=== PATIENT | male | born 1990 | race Hispanic/Latino ===

== ENCOUNTER 2024-06-12 09:12 | Emergency (ER) | payer SELFPAY ==
--- NOTE | ~2024-06-12 | US_ITS ---
EXAMINATION: US scrotum doppler DATE: 06/12/2024 11:31 INDICATION: Acute on chronic left testicular pain. TECHNIQUE: Grayscale and Doppler ultrasound images of the testes were obtained. COMPARISON: CT abdomen and pelvis 06/12/2024 FINDINGS: The right testis measures 4.0 x 2.4 x 2.7 cm. The left testis measures 3.5 x 2.1 x 3.2 cm. There is normal vascular flow to both testes. The right epididymis is normal with normal vascular logan w. The left epididymis is normal with normal vascular flow. There is no hydrocele. There is a left-si ded varicocele. IMPRESSION: 1. Left-sided varicocele. Reviewed, dictated and finalized at location A. OELECTRIC SYSTEMS TECHNICIAN IMPRESSION: 1. Left-sided varicocele.
--- NOTE | ~2024-06-12 | CT_ITS ---
EXAMINATION: CT abdomen pelvis w con DATE: 06/12/2024 10:42 INDICATION: Left flank and abdominal pain. Left testicular pain. TECHNIQUE: Computed tomography (CT) of the abdomen and pelvis was performed with 100 mL Omnipaque 350 intravenous contrast. Automated exposure control and iterative reconstruction technique were employe d. The dose-length product was 546.24 mGy-cm. COMPARISON: None. FINDINGS: The visualized portions of the lung bases demonstrate mild atelectasis. No pleural effusion . The heart size is normal. No pericardial effusion. There is bilateral gynecomastia. There is diffus e hepatic steatosis. The gallbladder, spleen, pancreas, adrenal glands, and kidneys are normal. There are no dilated loops of bowel. The appendix is normal. There are no pathologically enlarged lymph no kevin. There is no free intraperitoneal fluid. There is prominent fat in left inguinal canal. There is mild lumbar spondylosis. IMPRESSION: 1. Prominent fat in left inguinal canal, which may be a small hernia. 2. Diffuse hepatic steatosis. Reviewed, dictated and finalized at location A. D REPRESENTATIVE/HEALTH EDUCATION
[2024-06-12 09:16] VITALS: BP 123/93; PULSE 70; RESP 18; TEMP 36.2; O2SAT 99
--- NOTE | 2024-06-12 10:02 | ED_ITS ---
HPI - General Adult General Chief complaint: Urogenital-Male Stated complaint: testicular pain/swelling Time Seen by Provider: 06/12/24 09:40 Source: patient and japanese interpreter Mode of arrival: ambulatory Limitations: language barrier History of Present Illness HPI narrative: Who this is a 34-year-old Australian-speaking male who presents to the ED for chief complaint of left-sided abdominal pain and left testicular pain over the past couple days. Reports that he has had this kind of pain intermittent over the past year but it got worse over the past several days. States that the testicle on the left side seems worse with pain and swelling. Denies any rash. Denies any known history of STD or specific concern for STD. Denies nausea, vomiting, diarrhea, issues with bowel movements. Denies fevers or chills. Related Data Allergies Allergy/AdvReac Type Severity Reaction Status Date / Time No Known Allergies Allergy Verified 06/12/24 10:39 Review of Systems Review of Systems: All systems as dictated in HPI Exam Narrative: GENERAL: Well-appearing, well-nourished, and in no acute distress. HEAD: Normocephalic, atraumatic. EYES: PERRLA and EOMI. ENT: Nares clear, no rhinorrhea or epistaxis. Mucous membranes moist. Oropharynx without tonsillar hypertrophy exudate or other lesions. NECK: Supple. No adenopathy or masses. CHEST: No respiratory distress. Clear to auscultation. No wheezes rales or rhonchi HEART: Regular rate and rhythm. No murmur heard. Normal peripheral pulses. ABDOMEN: Soft, nontender, nondistended, normal active bowel sounds. MSK: Normal range of motion. No edema. SKIN: Warm, dry, no rash. NEURO: Alert and oriented x4. No focal deficits. PSYCH: Normal mood and affect. : Testicular exam shows mild tenderness bilaterally. Minimal to no swelling noted. No rash. Skin intact. No penile discharge. Uncircumcised Course Vital Signs Vital signs: Vital Signs Temperature 97.2 F L 06/12/24 09:16 Pulse Rate 70 06/12/24 09:16 Respiratory Rate 18 06/12/24 09:16 Blood Pressure 123/93 H 06/12/24 09:16 Pulse Oximetry 99 06/12/24 09:16 Oxygen Delivery Room Air 06/12/24 09:16 Temperature 97.2 F L 06/12/24 09:16 Pulse Rate 61 06/12/24 13:20 Respiratory Rate 16 06/12/24 13:20 Blood Pressure 116/83 06/12/24 13:20 Pulse Oximetry 96 06/12/24 13:20 Oxygen Delivery Room Air 06/12/24 09:16 Medical Decision Making MDM Narrative Medical decision making narrative: This is a 34-year-old male who presents to the ED for chief complaint of left abdominal plain and left testicular pain intermittent over the past year but worse this week. Vitals are normal. Exam shows normal exam and only mild to minimal abdominal tenderness on the left side. Lab work is grossly unremarkable including a normal UA. STD labs are negative. CT abdomen pelvis with IV contrast: IMPRESSION: 1. Prominent fat in left inguinal canal, which may be a small hernia. 2. Diffuse hepatic steatosis. Ultrasound scrotal: IMPRESSION: 1. Left-sided varicocele. Overall presentation is consistent with inguinal hernia versus left-sided varicocele. Explained to the patient that he will need to follow-up with surgery and PCP on these findings. Patient will be discharged in stable condition. Supportive measures discussed and return precautions given. Patient is understanding and agreeable with plan for discharge with PCP follow-up. Vital Signs Vital Signs: Vital Signs Temperature 97.2 F L 06/12/24 09:16 Pulse Rate 70 06/12/24 09:16 Respiratory Rate 18 06/12/24 09:16 Blood Pressure 123/93 H 06/12/24 09:16 Pulse Oximetry 99 06/12/24 09:16 Oxygen Delivery Room Air 06/12/24 09:16 Temperature 97.2 F L 06/12/24 09:16 Pulse Rate 61 06/12/24 13:20 Respiratory Rate 16 06/12/24 13:20 Blood Pressure 116/83 06/12/24 13:20 Pulse Oximetry 96 06/12/24 13:20 Oxygen Delivery Room Air 06/12/24 09:16 Lab Data 06/12/24 10:20 06/12/24 10:36 Labs: Lab Results 06/12/24 06/12/24 06/12/24 Range/Units 09:58 09:59 10:20 WBC 7.6 (4.5-10.0) K/mm3 RBC 4.99 (4.6-6.20) M/mm3 Hgb 15.4 (14.0-18.0) g/dL Hct 44.7 (42.0-52.0) % MCV 89.6 (80-100) fl MCH 30.9 (26-34) pg MCHC 34.5 (32-36) g/dl RDW 12.2 (11.5-14.5) % Plt Count 203 (150-375) k/mm3 MPV 10.8 H (7.4-10.4) fl Immature Gran % (Auto) 0.8 H (0-0.5) % Neut % (Auto) 52.2 (45.5-73.1) % Lymph % (Auto) 36.3 (18.3-44.2) % [place] % (Auto) 6.8 (2.6-8.5) % Eos % (Auto) 2.8 (0-4.4) % Baso % (Auto) 1.1 (0.2-1.2) % Lymph # (Auto) 2.76 (0.9-3.2) K/mm3 [place] # (Auto) 0.5 (0.1-0.6) K/mm3 Eos # (Auto) 0.2 (0-0.3) K/mm3 Baso # (Auto) 0.1 (0.0-0.1) K/mm3 Abs Immat Gran (auto) 0.06 H (0.00-0.031) K/mm3 Absolute Neuts (auto) 4.0 (1.3-6.7) K/mm3 Absolute Nucleated RBC 0.000 (0.0-0.012) K/mm3 Nucleated RBC % 0.0 (0.0-0.2) % Sodium 138 (137-145) mmol/L Potassium 4.0 (3.4-5.0) mmol/L Chloride 102 (98-107) mmol/L Carbon Dioxide 26 (22-30) mmol/L Anion Gap 10 (4-12) mmol/L BUN 12 (9-20) mg/dL Creatinine 0.80 (0.7-1.3) mg/dL Estim Creat Clear Calc 112 ml/min Estimated GFR > 60 (59 - ) Glucose 94 (65-110) mg/dL Calcium 9.1 (8.4-10.2) mg/dL Total Bilirubin 0.5 (0.2-1.3) mg/dL AST 44 (17-59) U/L ALT 61 H (6-50) U/L Alkaline Phosphatase 71 (38-126) U/L Total Protein 8.0 (6.3-8.2) g/dL Albumin 4.5 (3.5-5.1) g/dL Urine Color Yellow (Yellow) Urine Appearance Clear (Clear) Urine pH 5.5 (5.0-9.0) Ur Specific [place] 1.019 (1.001-1.035) Urine Protein Negative (Negative) mg/dL Urine Glucose (UA) Negative (Negative) mg/dL Urine Ketones Negative (Negative) mg/dL Ur Blood (Man) Negative (Negative) Urine Nitrate Negative (Negative) Urine Bilirubin Negative (Negative) Urine Urobilinogen 0.2 (<2.0) mg/dL Leukocyte Esterase Rfl Negative (Negative) EVON/UL C. trachomatis (PCR) Not detected (NOT DETECTE) N. gonorrhoeae (PCR) Not detected (NOT DETECTE) T. vaginalis (PCR) Not detected (NOT DETECTE) 06/12/24 Range/Units 10:36 WBC (4.5-10.0) K/mm3 RBC (4.6-6.20) M/mm3 Hgb (14.0-18.0) g/dL Hct (42.0-52.0) % MCV (80-100) fl MCH (26-34) pg MCHC (32-36) g/dl RDW (11.5-14.5) % Plt Count (150-375) k/mm3 MPV (7.4-10.4) fl Immature Gran % (Auto) (0-0.5) % Neut % (Auto) (45.5-73.1) % Lymph % (Auto) (18.3-44.2) % [place] % (Auto) (2.6-8.5) % Eos % (Auto) (0-4.4) % Baso % (Auto) (0.2-1.2) % Lymph # (Auto) (0.9-3.2) K/mm3 [place] # (Auto) (0.1-0.6) K/mm3 Eos # (Auto) (0-0.3) K/mm3 Baso # (Auto) (0.0-0.1) K/mm3 Abs Immat Gran (auto) (0.00-0.031) K/mm3 Absolute Neuts (auto) (1.3-6.7) K/mm3 Absolute Nucleated RBC (0.0-0.012) K/mm3 Nucleated RBC % (0.0-0.2) % Sodium (137-145) mmol/L Potassium (3.4-5.0) mmol/L Chloride (98-107) mmol/L Carbon Dioxide (22-30) mmol/L Anion Gap (4-12) mmol/L BUN (9-20) mg/dL Creatinine 0.90 (0.7-1.3) mg/dL Estim Creat Clear Calc 101 ml/min Estimated GFR > 60 (59 - ) Glucose (65-110) mg/dL Calcium (8.4-10.2) mg/dL Total Bilirubin (0.2-1.3) mg/dL AST (17-59) U/L ALT (6-50) U/L Alkaline Phosphatase (38-126) U/L Total Protein (6.3-8.2) g/dL Albumin (3.5-5.1) g/dL Urine Color (Yellow) Urine Appearance (Clear) Urine pH (5.0-9.0) Ur Specific [place] (1.001-1.035) Urine Protein (Negative) mg/dL Urine Glucose (UA) (Negative) mg/dL Urine Ketones (Negative) mg/dL Ur Blood (Man) (Negative) Urine Nitrate (Negative) Urine Bilirubin (Negative) Urine Urobilinogen (<2.0) mg/dL Leukocyte Esterase Rfl (Negative) EVON/UL C. trachomatis (PCR) (NOT DETECTE) N. gonorrhoeae (PCR) (NOT DETECTE) T. vaginalis (PCR) (NOT DETECTE) Discharge Plan Discharge Clinical Impression: Inguinal hernia, Left varicocele Patient Disposition: Home, Self-Care Condition: Stable Instructions: Antibiotic Form Additional Instructions: Exam and workup today do show evidence of left-sided hernia and left-sided varicocele. Please follow-up with surgeon. Use Tylenol and ibuprofen every 6 hours as needed for pain control. If you have any new or worsening symptoms please return to the ER for further evaluation. Follow-up/Referrals: PHYSICIAN,ROLLER SKATER [Non-Staff] - Anant Smith MD [Physician] - Time of Disposition: 12:21
[2024-06-12 10:11] LABS: Add Urine Microscopic? NO; Appearance Urine Clear (Clear); Bilirubin Urine Negative (Negative); Blood Urine Negative (Negative); Color Urine Yellow (Yellow); Glucose Urine UA Negative (Negative); Ketones Urine Negative (Negative); Leukocyte Esterase Ur Negative LEU/UL (Negative); Nitrate Urine Negative (Negative); Protein Urine Negative (Negative); Specific Grav Ur 1.019 (1.001-1.035); Urobilinogen Urine 0.2 mg/dL (<2.0); pH Urine 5.5 (5.0-9.0)
[2024-06-12 10:29] LABS: Basophils Absolute Auto 0.1 K/mm3 (0.0-0.1); Basophils Percent Auto 1.1 % (0.2-1.2); Eosinophils Absolute Auto 0.2 K/mm3 (0-0.3); Eosinophils Percent Auto 2.8 % (0-4.4); Hematocrit 44.7 % (42.0-52.0); Hemoglobin 15.4 g/dL (14.0-18.0); Immature Granulocyte Absolute 0.06 K/mm3 (0.00-0.031); Immature Granulocyte Percent A 0.8 % (0-0.5); Lymphocytes Absolute Auto 2.76 K/mm3 (0.9-3.2); Lymphocytes Percent Auto 36.3 % (18.3-44.2); Mean Corpuscular HGB Conc 34.5 g/dl (32-36); Mean Corpuscular Hemoglobin 30.9 pg (26-34); Mean Corpuscular Volume 89.6 fl (80-100); Mean Platelet Volume 10.8 fl (7.4-10.4); Monocytes Absolute Auto 0.5 K/mm3 (0.1-0.6); Monocytes Percent Auto 6.8 % (2.6-8.5); Neutrophils Percent Auto 52.2 % (45.5-73.1); Platelet Count Result 203 k/mm3 (150-375); Red Blood Count 4.99 M/mm3 (4.6-6.20); Red Cell Distribution Width 12.2 % (11.5-14.5); White Blood Count 7.6 K/mm3 (4.5-10.0)
[2024-06-12 10:38] LABS: Estimated CRCL calculation 101 ml/min; Estimated Glomerular Filt Rate > 60
[2024-06-12 10:44] LABS: Alanine Aminotransferase 61 U/L (6-50); Albumin Level 4.5 g/dL (3.5-5.1); Alkaline Phosphatase 71 U/L (38-126); Anion Gap 10 mmol/L (4-12); Aspartate Amino Transferase 44 U/L (17-59); Bilirubin,Total 0.5 mg/dL (0.2-1.3); Blood Urea Nitrogen 12 mg/dL (9-20); Calcium 9.1 mg/dL (8.4-10.2); Carbon Dioxide 26 mmol/L (22-30); Chloride 102 mmol/L (98-107); Estimated CRCL calculation 112 ml/min; Estimated Glomerular Filt Rate > 60; Glucose 94 mg/dL (65-110); Sodium 138 mmol/L (137-145)
[2024-06-12 11:41] LABS: Trichomonas Vag PCR NOT DETECTED (NOT DETECTE)
[2024-06-12 12:07] LABS: Chlamydia trachomatis NOT DETECTED (NOT DETECTE); Neisseria gonorrhoeae PCR NOT DETECTED (NOT DETECTE)
[2024-06-12 13:20] VITALS: BP 116/83; PULSE 61; RESP 16; O2SAT 96
== END 2024-06-12 13:22 | disposition home or self-care (01) ==
PROVIDERS: Emergency Provider Physician Assistant
DX: I86.1 Scrotal varices (principal); K40.90 Unilateral inguinal hernia, without obstruction or gangrene, not specified as recurrent
CPT/HCPCS: 36415; 74177; 76870; 80053; 81003; 85025; 87491; 87591; 87661; 93976; 99284; Q9967